=== PATIENT | male | born 1990 | race African-American/Black ===

== ENCOUNTER 2020-11-24 17:53 | Emergency (ER) | payer SELFPAY ==
[~2020-11-24] VITALS: Ht 167.6 cm; Wt 104.5 kg
[2020-11-24 17:58] VITALS: BP 154/84
[2020-11-24] MEDS ORDERED: AMOX1TAB61 PO (18:21)
[2020-11-24] MEDS ORDERED: HYDR-2759 PO (18:21)
--- NOTE | 2020-11-24 18:22 | PHYS DOC ---
Past History Past Medical History: Other Additional Past Medical Histor: Scoliosis Alcohol Use: None General Adult EDM: Chief Complaint: DENTAL PROBLEM HPI: HPI: 30-year-old male presents with left lower dental pain. The patient has a cavity in tooth #19. It started to hurt him yesterday and has gotten worse today. He has some lower swelling in the area. It is tender to touch the gums. Cold water helps heat makes it worse. He has tried Orajel. He is taking ibuprofen. He denies fever or chills. He has had an infected tooth in another location in his mouth which required tooth extraction in the past. Patient has called the dental service and is trying to get an appointment for next week. Review of Systems: Review of Systems: Constitutional: Denies fever or chills Eyes: Denies change in visual acuity HENT: Denies nasal congestion or sore throat. Dental pain Respiratory: Denies cough or shortness of breath Cardiovascular: Denies chest pain or edema GI: Denies abdominal pain, nausea, vomiting, bloody stools or diarrhea : Denies dysuria Musculoskeletal: Denies back pain or joint pain Integument: Denies rash Neurologic: Denies headache, focal weakness or sensory changes Endocrine: Denies polyuria or polydipsia Lymphatic: Denies swollen glands Psychiatric: Denies depression or anxiety Physical Exam: PE: Constitutional: Well developed, well nourished, no acute distress, non-toxic appearance. [] HENT: Normocephalic, atraumatic, bilateral external ears normal, no oral exudates, nose normal. Tooth 19 with cavity down to the gumline, surrounding erythema of the gumline without palpable abscess. [] Eyes: PERRLA, EOMI, conjunctiva normal, no discharge. [] Neck: Normal range of motion, no tenderness, supple, no stridor. [] Cardiovascular: Heart rate regular rhythm, no murmur [] Lungs & Thorax: Bilateral breath sounds clear to auscultation [] Abdomen: Bowel sounds normal, soft, no tenderness, no masses, no pulsatile masses. [] Skin: Warm, dry, no erythema, no rash. [] Back: No tenderness, no CVA tenderness. [] Extremities: No tenderness, no cyanosis, no clubbing, ROM intact, no edema. [] Neurologic: Alert and oriented X 3, normal motor function, normal sensory function, no focal deficits noted. [] Psychologic: Affect normal, judgement normal, mood normal. [] Current Patient Data: Vital Signs: Vital Signs Date Time Temp Pulse Resp B/P (MAP) Pulse Ox O2 Delivery O2 Flow Rate FiO2 11/24/20 17:58 98.0 78 16 154/84 (107) 100 Room Air EKG: EKG: [] Radiology/Procedures: Radiology/Procedures: [] Heart Score: C/O Chest Pain: N/A Risk Factors: Risk Factors: DM, Current or recent (<one month) smoker, HTN, HLP, family history of CAD, obesity. Risk Scores: Score 0 - 3: 2.5% MACE over next 6 weeks - Discharge Home Score 4 - 6: 20.3% MACE over next 6 weeks - Admit for Clinical Observation Score 7 - 10: 72.7% MACE over next 6 weeks - Early Invasive Strategies Course & Med Decision Making: Course & Med Decision Making Pertinent Labs and Imaging studies reviewed. (See chart for details) The patient does appear to have an infected tooth. I will treat him with Augmentin for 7 days and given a short course of [place] 5/325. I have reviewed the narcotics database and the patient does not have any entries for the last year. He will get in with a dentist as soon as possible. He is stable for discharge at this time. [] Simi Disclaimer: Dragpanchito Disclaimer: This electronic medical record was generated, in whole or in part, using a voice recognition dictation system. Departure Departure: Impression: Primary Impression: Infected dental caries Disposition: HOME / SELF CARE / HOMELESS Condition: STABLE Referrals: PCP,NO (PCP) Patient Instructions: Dental Pain, [id number] Scripts Amoxicillin/Potassium Clav (AUGMENTIN 875-125 TABLET) 1 Each Tablet 1 TAB PO BID for dental infection for 7 Days, #14 TAB 0 Refills Prov: MEENA GROVES DO 11/24/20 Hydrocodone/Acetaminophen (Hydrocodone-Acetamin 5-325 mg) 1 Each Tablet 1 EACH PO Q4-6HRS PRN for PAIN, #10 TAB Prov: MEENA GROVES DO 11/24/20 MEENA GROVES DO Nov 24, 2020 18:22
[2020-11-24] MEDS ORDERED: HYDROcodone/APAP 5/325MG 1 TAB TABLET PO ONE (18:30)
[2020-11-24] MEDS ORDERED: AMOXICILLIN/K CLAV 875/125MG TABLET. PO ONE (18:30)
== END 2020-11-24 18:49 | disposition home or self-care (01) ==
LOC: ER 17:53
DX: K02.9 Dental caries, unspecified (principal); K04.7 Periapical abscess without sinus
CPT/HCPCS: 99283

== ENCOUNTER 2021-09-29 22:09 | Emergency (ER) | payer SELFPAY ==
[~2021-09-29] VITALS: Ht 167.6 cm; Wt 104.0 kg
[~2021-09-29 22:09] MED LIST: AMOX1TAB61 PO; HYDR-2759 PO
--- NOTE | 2021-09-29 22:16 | PHYS DOC ---
Past History Past Medical History: Other Additional Past Medical Histor: Scoliosis Alcohol Use: None General Adult HPI: HPI: ".. I was carrying a TV at work and skinned my knuckles on my right hand... That was on Sunday and since then is gotten red swollen... infected.." Patient is a 31 year old male who presents with right hand injury. Patient is third finger dorsal side second joint right hand has an area of pointing abscess.and surrounding cellulitis and swelling. Patient does not member his last tetanus. Patient still has range of motion distal capillary refill is equal to other fingers. Patient denies any immunosuppression. No recent travel. No specific ill contacts. Review of Systems: Review of Systems: Constitutional: Denies fever or chills Eyes: Denies change in visual acuity HENT: Denies nasal congestion or sore throat Respiratory: Denies cough or shortness of breath Cardiovascular: Denies chest pain or edema GI: Denies abdominal pain, nausea, vomiting, bloody stools or diarrhea : Denies dysuria Musculoskeletal: Denies back pain or joint pain Integument: Complains of abscess and cellulitis right hand Neurologic: Denies headache, focal weakness or sensory changes Endocrine: Denies polyuria or polydipsia Lymphatic: Denies swollen glands Psychiatric: Denies depression or anxiety Family History: Family History: Noncontributory to presentation Current Medications: Current Meds: See nursing for home meds Allergies: Allergies: Allergies Coded Allergies Type Severity Reaction Last Updated Verified No Known Drug Allergies 11/24/20 No Physical Exam: PE: Constitutional: Moderate acute distress, non-toxic appearance. [] HENT: Normocephalic, atraumatic, bilateral external ears normal, oropharynx moist, no oral exudates, nose normal. [] Eyes: PERRLA, EOMI, conjunctiva normal, no discharge. [] Neck: Normal range of motion, no tenderness, supple, no stridor. [] Cardiovascular:Heart rate regular rhythm, no murmur [] Lungs & Thorax: Bilateral breath sounds clear to auscultation [] Abdomen: Bowel sounds normal, soft, no tenderness, no masses, no pulsatile masses. Obese Skin: Warm, dry, no erythema, no rash. [] Cellulitis abscess right hand third finger. Back: No tenderness, no CVA tenderness. [] Extremities: No tenderness, no cyanosis, no clubbing, ROM intact, no edema. [] Neurologic: Alert and oriented X 3, normal motor function, normal sensory function, no focal deficits noted. [] Psychologic: Affect normal, judgement normal, mood normal. [] EKG: EKG: [] Radiology/Procedures: Radiology/Procedures: [] Heart Score: C/O Chest Pain: N/A Risk Factors: Risk Factors: DM, Current or recent (<one month) smoker, HTN, HLP, family history of CAD, obesity. Risk Scores: Score 0 - 3: 2.5% MACE over next 6 weeks - Discharge Home Score 4 - 6: 20.3% MACE over next 6 weeks - Admit for Clinical Observation Score 7 - 10: 72.7% MACE over next 6 weeks - Early Invasive Strategies Course & Med Decision Making: Course & Med Decision Making Pertinent Labs and Imaging studies reviewed. (See chart for details) Procedure note-incision and drainage-risk and benefits of procedure discussed. Right hand finger cleaned of Betadine. 1 stick with 15 blade removed +1 cc of pus. Patient to soak finger and warm salt water or Epson salts 4 times a day. Then massage in Polysporin. Patient take Bactrim DS twice a day. Patient tetanus updated. Patient monitor for infection. Follow-up work comp. Return if any concerns [] Dragon Disclaimer: Dragon Disclaimer: This electronic medical record was generated, in whole or in part, using a voice recognition dictation system. Departure Departure: Referrals: PCP,NO (PCP) Scripts Sulfamethoxazole/Trimethoprim (BACTRIM DS TABLET) 1 Each Tablet 1 TAB PO BID for cellulitis for 10 Days, #20 TAB 0 Refills Prov: BEST ADAMS MD 09/29/21 Simi Disclaimer This chart was dictated in whole or in part using Voice Recognition software in a busy, high-work load, and often noisy Emergency Department environment. It may contain unintended and wholly unrecognized errors or omissions. BEST ADAMS MD Sep 29, 2021 22:16
[2021-09-29] MEDS ORDERED: SULF1TAB24 PO (23:23)
[2021-09-29] MEDS ORDERED: SMZ/TMP 800/160MG TABLET. PO ONE (23:30)
[2021-09-29] MEDS ORDERED: cefTRIAXone IM 1 GM VIAL IM ONE (23:30)
[2021-09-29] MEDS ORDERED: DIPHTH,PERTUSS(ACELL),TET TOX 0.5 ML DISP.SYRIN. VAX IM ONE (23:30)
[2021-09-30 00:05] VITALS: BP 120/72
== END 2021-09-30 00:15 | disposition home or self-care (01) ==
LOC: ER 22:09
DX: L02.511 Cutaneous abscess of right hand (principal); L03.113 Cellulitis of right upper limb
CPT/HCPCS: 26010; 90471; 90715; 96372; 99284; J0696; 10060